=== PATIENT | male | born 1985 | race Caucasian/White ===

== ENCOUNTER 2021-05-21 12:12 | Emergency (ER) | payer OTHER ==
[2021-05-21 12:49] LABS: BASOPHIL 0.6 % (0-2); EOSINOPHIL 0.6 % (0-5); HCT 53.9 % (42.0-52.0); HGB 18.3 g/dl (13.2-18.0); LYMPHOCYTE 21.3 % (15-48); MCH 33.6 pg (25.0-31.0); MCV 98.9 fL (78.0-100.0); MONOCYTE 11.2 % (0-12); MPV 8.7 fL (6.0-9.5); NEUTROPHIL 65.9 % (41-80); NRBC 0; PLT 304 K/uL (150-400); RBC 5.45 M/uL (4.70-6.00); RDW 12.3 % (11.5-14.0); WBC 8.4 K/uL (4.0-10.5)
[2021-05-21 12:53] LABS: INR 0.93 (0.9-1.2); PROTHROMBIN TIME 11.9 SECONDS (11.8-13.4); PTT 30.4 SECONDS (24.4-34.7)
[2021-05-21 13:12] LABS: ALBUMIN 4.1 g/dL (3.4-5.0); BILIRUBIN - TOTAL 0.9 mg/dL (0.2-1.0); BUN/CREAT RATIO (CALC) 7.4 RATIO; CREATININE 0.94 mg/dL (0.67-1.17); GLOBULIN (CALCULATION) 3.7 g/dL; POTASSIUM 4.2 mmol/L (3.5-5.1); TOTAL PROTEIN 7.8 g/dL (6.4-8.2)
[2021-05-21] MEDS ORDERED: AMOXICILLIN500 MG PO (15:52)
[2021-05-21] MEDS ORDERED: VENTOLIN HFA IN18 GM INH (15:53)
[2021-05-21] MEDS ORDERED: MEDROL 4MG DOSEP4 MG PO (15:55)
== END 2021-05-21 17:00 | disposition home or self-care (01) ==
LOC: FER 12:12
PROVIDERS: Internal Medicine
DX: J40 Bronchitis, not specified as acute or chronic (principal); S22.42XA Multiple fractures of ribs, left side, initial encounter for closed fracture; J90 Pleural effusion, not elsewhere classified; F17.210 Nicotine dependence, cigarettes, uncomplicated; X58.XXXA Exposure to other specified factors, initial encounter; Z88.5 Allergy status to narcotic agent
CPT/HCPCS: 36415; 71045; 71275; 80053; 84484; 85025; 85379; 85610; 85730; 93005; Q9967